=== PATIENT | male | born 1985 | race African-American/Black ===

== ENCOUNTER 2020-04-30 14:28 | Emergency (ER) | payer OTHER ==
[~2020-04-30] VITALS: Ht 190.5 cm; Wt 156.5 kg
--- NOTE | ~2020-04-30 | EKG ---
[facility] [place] [address] ELECTROCARDIOGRAM REPORT Name: LENIN WHALEY Room #: [facility]#: [id number] Admission: 04/30/20 Attend Phys: Discharge: 04/30/20 Date of : 81 Report #: [id number] THIS REPORT FOR: cc: Ulises Espino MD, Amit MD Epiphany, Epiphany MD ~ THIS REPORT FOR: //name// [facility] ED Test Date: 2020-04-30 Test Time: 14:39:16 Pat Name: LENIN WHALEY Department: Room: Gender: M [employer]: : 1985 Requested By: Juliann Barnes Order Number: [id number] MD: Measurements Intervals [place] Rate: 89 P: 17 WI: 168 QRS: 25 QRSD: 99 T: 24 QT: 349 QTc: 425 Interpretive Statements Sinus rhythm ST elev, probable normal early repol pattern No previous ECG available for comparison [email or web address] By: 1439 1439 Epiphany Epiphany, /EPI
[~2020-04-30 14:28] MED LIST: TRAMADOL 50 MG50 MG PO
[2020-04-30] MEDS ORDERED: OMEPRAZOLE40 MG PO (14:38)
[2020-04-30] MEDS ORDERED: PREDNISONE 20 M20 M1 PO (15:44)
[2020-04-30] MEDS ORDERED: VALTREX 500 MG500 MG PO (15:44)
[2020-04-30] MEDS ORDERED: [UNRECOGNIZED DRUG - OTHER] OPHTHALMIC (15:50)
[2020-04-30 16:04] VITALS: BP 123/82
== END 2020-04-30 16:04 | disposition home or self-care (01) ==
LOC: ER 14:28
DX: G51.0 Bell's palsy (principal); Z79.899 Other long term (current) drug therapy